=== PATIENT | female | born 1960 | race Two or more races ===

== ENCOUNTER → 2019-09-26 | Outpatient (CLI) | payer MEDICARE, MEDICAID ==
[~2019-09-26] MED LIST: COR6 PO; plavix
== END | disposition home or self-care (01) ==
LOC: CT 09:15
PROVIDERS: ATTEND Neurological Surgery
DX: M47.897 Other spondylosis, lumbosacral region (principal); M48.061 Spinal stenosis, lumbar region without neurogenic claudication; M12.88 Other specific arthropathies, not elsewhere classified, other specified site
CPT/HCPCS: 72131

== ENCOUNTER → 2019-10-04 | Outpatient (CLI) | payer MEDICARE, MEDICAID | END | disposition home or self-care (01) | LOC: RAD 11:21 | PROVIDERS: ATTEND Neurological Surgery | DX: M25.551 Pain in right hip (principal); M25.552 Pain in left hip | CPT/HCPCS: 73521 ==

== ENCOUNTER 2020-01-24 13:11 | Inpatient (IN) | payer MEDICARE, MEDICAID ==
[~2020-01-24] VITALS: Ht 162.6 cm; Wt 56.2 kg
[2020-01-24] MEDS ORDERED: MAGNESIUM/ALUMINUM HYDROXIDE/SIMETHICONE 30ML UDC PO ONE (14:30)
[2020-01-24] MEDS ORDERED: ASPIRIN 81MG TABLET PO ONE (14:30)
[2020-01-24] MEDS ORDERED: VISCOUS LIDOCAINE 2% 15 ML UDC PO ONE (14:30)
[2020-01-24] MEDS ORDERED: DICYCLOMINE 10 MG/5 ML ORAL SYR PO ONE (14:30)
[2020-01-24 14:56] LABS: BASOPHILS % 0.6 % (0.0-2.0); EOSINOPHILS % 0.6 % (0.0-5.0); HEMATOCRIT. 43.3 % (36.0-48.0); HEMOGLOBIN. 14.8 g/dL (12.0-16.0); LYMPHOCYTES % 20.9 % (20.0-50.0); MEAN CORPUSCULAR HEMOGLOBIN 32.1 pg (28.0-32.0); MEAN CORPUSCULAR VOLUME 93.8 fL (81.0-99.0); MEAN PLATELET VOLUME 8.8 fl (7.4-10.4); MONOCYTES % 7.5 % (2.0-8.0); NEUTROPHILS % 70.4 % (40.0-76.0); PLATELET 232 x1000/uL (130-400); RED BLOOD CELL COUNT 4.61 mill/uL (4.2-5.4); RED CELL DISTRIBUTION WIDTH 14.6 % (11.6-14.6)
[2020-01-24 15:09] LABS: CHLORIDE 109 mEq/L (98-107)
[2020-01-24 15:42] LABS: CLARITY URINE CLOUDY (CLEAR); COLOR URINE YELLOW (YELLOW); KETONES URINE TRACE (NEGATIVE); LEUKOCYTE ESTERASE URINE 2+ (NEGATIVE); NITRITE URINE NEGATIVE (NEGATIVE); OCCULT BLOOD URINE NEGATIVE (NEGATIVE); PROTEIN URINE TRACE (NEGATIVE); SPECIFIC GRAVITY URINE 1.025 (1.005-1.030); UROBILINOGEN URINE 0.2 E.U./dL (0.2-1.0)
[2020-01-24] MEDS ORDERED: CEFTRIAXONE 1 G PREMIX 50 ML IV ONE (16:00)
[2020-01-24] MEDS ORDERED: ACETAMINOPHEN 650MG/20.3ML UDC PO PRN (18:45)
[2020-01-24] MEDS ORDERED: HYDROCODONE/ACETAMINOPHEN 5/325MG TABLET PO PRN (18:45)
[2020-01-25] VITALS (12 sets, daily range): BP systolic 88–111; BP diastolic 42–66
[2020-01-25] MEDS ORDERED: Q10 PO (01:49)
[2020-01-25] MEDS ORDERED: ALPR0.25 MT (01:54)
[2020-01-25 06:34] LABS: BASOPHILS % 0.7 % (0.0-2.0); EOSINOPHILS % 1.2 % (0.0-5.0); HEMATOCRIT. 38.4 % (36.0-48.0); HEMOGLOBIN. 13.2 g/dL (12.0-16.0); LYMPHOCYTES % 36.7 % (20.0-50.0); MEAN CORPUSCULAR HEMOGLOBIN 31.7 pg (28.0-32.0); MEAN CORPUSCULAR VOLUME 92.4 fL (81.0-99.0); MEAN PLATELET VOLUME 9.6 fl (7.4-10.4); MONOCYTES % 9.5 % (2.0-8.0); NEUTROPHILS % 51.9 % (40.0-76.0); PLATELET 177 x1000/uL (130-400); RED BLOOD CELL COUNT 4.16 mill/uL (4.2-5.4); RED CELL DISTRIBUTION WIDTH 14.2 % (11.6-14.6)
[2020-01-25 06:50] LABS: CHLORIDE 110 mEq/L (98-107)
[2020-01-25 07:11] LABS: PHOSPHORUS 3.3 mg/dL (2.5-4.9)
[2020-01-25] MEDS ORDERED: HEPARIN 5000 UNITS/ML VIAL SUBCUT SCH (11:00)
[2020-01-25] MEDS: ONDANSETRON HCL 4MG/2ML INJ IV PRN (11:19)
[2020-01-25] MEDS: ALPRAZOLAM 0.25 MG TABLET PO PRN (11:19)
[2020-01-25] MEDS ORDERED: ENOXAPARIN 30MG/0.3ML SYR SUBCUT SCH (13:00)
[2020-01-25] MEDS: DULOXETINE HCL 30MG DR CAPSULE PO SCH (14:05)
[2020-01-26] VITALS: BP 101/56
[2020-01-26 04:00] VITALS: BP 97/54
[2020-01-26] MEDS ORDERED: PANTOPRAZOLE 40MG DR TABLET PO SCH (06:50)
[2020-01-26 07:07] LABS: BASOPHILS % 0.5 % (0.0-2.0); EOSINOPHILS % 1.4 % (0.0-5.0); HEMATOCRIT. 38.8 % (36.0-48.0); HEMOGLOBIN. 13.1 g/dL (12.0-16.0); LYMPHOCYTES % 33.5 % (20.0-50.0); MEAN CORPUSCULAR HEMOGLOBIN 31.5 pg (28.0-32.0); MEAN CORPUSCULAR VOLUME 93.1 fL (81.0-99.0); MEAN PLATELET VOLUME 9.5 fl (7.4-10.4); MONOCYTES % 9.6 % (2.0-8.0); PLATELET 167 x1000/uL (130-400); RED BLOOD CELL COUNT 4.17 mill/uL (4.2-5.4); RED CELL DISTRIBUTION WIDTH 14.4 % (11.6-14.6)
[2020-01-26 07:21] LABS: CHLORIDE 109 mEq/L (98-107)
[2020-01-26 08:10] VITALS: BP 101/52
[2020-01-26] MEDS: ONDANSETRON HCL 4MG/2ML INJ IV PRN (08:15)
[2020-01-26] MEDS: DULOXETINE HCL 30MG DR CAPSULE PO SCH (09:00)
[2020-01-26] MEDS ORDERED: ENOXAPARIN 30MG/0.3ML SYR SUBCUT SCH (09:00)
[2020-01-26 10:00] VITALS: BP 113/67
[2020-01-26] MEDS: ALPRAZOLAM 0.25 MG TABLET PO PRN (10:26)
[2020-01-26] MEDS ORDERED: DULO30CA2 PO (11:39)
[2020-01-26 12:00] VITALS: BP 105/55
[2020-01-26 12:48] VITALS: BP 105/55
[2020-01-26] MEDS ORDERED: ESCI10TA MT (13:07)
== END 2020-01-26 14:20 | disposition home or self-care (01) | DRG 206 ==
LOC: ER 13:11 → 3WST 15:31 → ENRESERV 22:21
PROVIDERS: ADMIT Family Medicine Adult Medicine; ATTEND Family Medicine Adult Medicine
DX: M94.0 Chondrocostal junction syndrome [Tietze] (principal); I10 Essential (primary) hypertension; I25.10 Atherosclerotic heart disease of native coronary artery without angina pectoris; F41.0 Panic disorder [episodic paroxysmal anxiety]; K21.9 Gastro-esophageal reflux disease without esophagitis; F32.9 Major depressive disorder, single episode, unspecified; E78.5 Hyperlipidemia, unspecified; E78.00 Pure hypercholesterolemia, unspecified; Z72.0 Tobacco use; Z88.8 Allergy status to other drugs, medicaments and biological substances; Z79.899 Other long term (current) drug therapy; Z90.49 Acquired absence of other specified parts of digestive tract; Z95.0 Presence of cardiac pacemaker; Z79.01 Long term (current) use of anticoagulants
CPT/HCPCS: 36415; 71045; 76700; 80053; 81003; 83735; 84100; 84484; 85025; 93005; 97162; 99285; J0696; J1644; J1650; J2405